=== PATIENT | male | born 1955 | race Caucasian/White ===

== ENCOUNTER 2017-10-31 23:43 | Emergency (ER) | payer OTHER ==
[2017-10-31 23:51] VITALS: RESP 18
--- NOTE | 2017-11-01 00:21 | XR ---
EXAMINATION TYPE: XR chest 2V DATE OF EXAM: 11/01/2017 COMPARISON: 10/26/2008 HISTORY: Irregular heartbeat TECHNIQUE: Frontal and lateral views of the chest are obtained. FINDINGS: There is no heart failure nor confluent pneumonic infiltrate. There are sternal wires. Cos tophrenic angles are clear. Heart size is normal. IMPRESSION: No active cardiopulmonary disease. There is clearing of the subsegmental atelectasis on the left side compared to old exam.
[2017-11-01 00:26] LABS: Basophils % (A) 0 %; Eosinophils # (A) 0.4 k/uL (0-0.7); Eosinophils % (A) 4 %; HCT 48.5 % (39.0-53.0); HGB 16.4 gm/dL (13.0-17.5); Lymphocytes # (A) 2.5 k/uL (1.0-4.8); Lymphocytes % (A) 27 %; MCH 27.3 pg (25.0-35.0); MCHC 33.7 g/dL (31.0-37.0); MCV 80.9 fL (80.0-100.0); Mean Platelet Volume 7.3; Monocytes # (A) 0.6 k/uL (0-1.0); Monocytes % (A) 7 %; Neutrophils # (A) 5.4 k/uL (1.3-7.7); Neutrophils % (A) 59 %; Platelet Count 237 k/uL (150-450); RBC 5.99 m/uL (4.30-5.90); RDW 13.2 % (11.5-15.5); WBC 9.2 k/uL (3.8-10.6)
[2017-11-01 00:36] LABS: INR 1.1 (<1.2); Partial Thromboplastin Time 23.8 sec (22.0-30.0); Prothrombin Time 10.6 sec (9.0-12.0)
[2017-11-01 00:40] LABS: ALT 25 U/L (21-72); AST 23 U/L (17-59); Albumin 4.5 g/dL (3.5-5.0); Alkaline Phosphatase 67 U/L (38-126); Anion Gap 17 mmol/L; Blood Urea Nitrogen 18 mg/dL (9-20); Calcium 9.6 mg/dL (8.4-10.2); Carbon Dioxide 24 mmol/L (22-30); Chloride 102 mmol/L (98-107); Glucose 116 mg/dL (74-99); Potassium 3.9 mmol/L (3.5-5.1); Sodium 143 mmol/L (137-145); Total Bilirubin 1.1 mg/dL (0.2-1.3); Total Protein 6.7 g/dL (6.3-8.2)
[2017-11-01 00:50] LABS: Creatine Kinase 48 U/L (55-170)
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
[2017-11-01 01:03] LABS: Creatine Kinase MB 0.6 ng/mL (0.0-2.4); Troponin I <0.012 ng/mL (0.000-0.034)
[2017-11-01 02:44] VITALS: BP 132/67; PULSE 62; TEMP 98
== END 2017-11-01 02:44 | disposition home or self-care (01) ==
LOC: EC 23:43
DX: R00.2 Palpitations (principal); M25.512 Pain in left shoulder; E78.5 Hyperlipidemia, unspecified; I10 Essential (primary) hypertension; Z79.82 Long term (current) use of aspirin; Z79.899 Other long term (current) drug therapy; Z95.1 Presence of aortocoronary bypass graft; Z95.818 Presence of other cardiac implants and grafts
CPT/HCPCS: 36415; 71046; 80053; 82550; 82553; 83735; 84484; 85025; 85610; 85730; 93005; 99285

== ENCOUNTER → 2020-05-29 | Outpatient (CLI) | payer BC ==
--- NOTE | 2020-05-29 11:30 | US ---
EXAMINATION TYPE: US abdomen complete DATE OF EXAM: 05/29/2020 COMPARISON: NONE CLINICAL HISTORY: K83.9 BILIARY AND GALLBLADER DISORDER. Gallbladder disorder EXAM MEASUREMENTS: Liver Length: 18.7 cm Gallbladder Wall: 0.3 cm CBD: 0.4 cm Spleen: 13.6 cm Right Kidney: 12.5 x 6.4 x 6.7 cm Left Kidney: 12.5 x 7.1 x 5.9 cm Pancreas: wnl, tail obscured by overlying bowel gas Liver: Enlarged, Difficult to penetrate, heterogeneous Gallbladder: Possible small stones near neck, dependent echoes are present Evidence for sonographic Mckeon's sign: No CBD: wnl Spleen: Enlarged Right Kidney: Probable parapelvic cyst= 8.3 x 5.4 x 5.1 cm , no definite hydronephrosis, cortical c yst also suspected upper pole Left Kidney: wnl Upper IVC: wnl Abd Aorta: wnl, distal portion gassed out There is no ascites. Kidneys show normal cortical medullary differentiation. IMPRESSION: Hepatic steatosis, hepatosplenomegaly. Cholelithiasis. Probable parapelvic possible corti dilia cyst left kidney, alternate imaging could be performed for better definition.
== END | disposition home or self-care (01) ==
LOC: RADUSWWP 07:27
PROVIDERS: ATTEND Internal Medicine
DX: K76.0 Fatty (change of) liver, not elsewhere classified (principal); R16.2 Hepatomegaly with splenomegaly, not elsewhere classified; K80.20 Calculus of gallbladder without cholecystitis without obstruction
CPT/HCPCS: 76700

== ENCOUNTER → 2020-06-23 | Outpatient (CLI) | payer BC ==
--- NOTE | 2020-06-23 14:51 | NM ---
Nuclear medicine hepatobiliary scan. HISTORY: Pain. DOSAGE: The patient received 8 ounces of ensure plus and 4.7 mCi of Technetium 99m Choletec. FINDINGS: There is normal hepatic extraction. The gallbladder is seen by 15 minutes. There is bilia ry to bowel clearance by 15 minutes. Ejection fraction is 79%. IMPRESSION: 1. Normal hepatobiliary exam
== END | disposition home or self-care (01) ==
LOC: RADNMMAIN 12:32
PROVIDERS: ATTEND Internal Medicine
DX: K83.9 Disease of biliary tract, unspecified (principal)
CPT/HCPCS: 78226; A9537

== ENCOUNTER → 2021-04-14 | Outpatient (CLI) | payer BC ==
--- NOTE | 2021-04-14 09:31 | XR ---
Right shoulder HISTORY: Pain 3 views the right shoulder Acromioclavicular joint arthropathy is present. Bone mineralization, joint spaces and alignment are m aintained. There is a distal acromial spur. Right lung apex as visualized is normal. No fracture or d islocation. Oblique image does not show the entire scapula. IMPRESSION: Correlate for impingement, there is acromioclavicular joint arthropathy. Shoulder MRI may be of benefit.
== END | disposition home or self-care (01) ==
LOC: RADXRMAIN 09:06
PROVIDERS: ATTEND Internal Medicine
DX: M19.011 Primary osteoarthritis, right shoulder (principal)

== ENCOUNTER → 2022-01-19 | Outpatient (CLI) | payer BC ==
--- NOTE | 2022-01-19 12:46 | XR ---
EXAMINATION TYPE: XR chest 2V DATE OF EXAM: 01/19/2022 COMPARISON: Chest x-ray dated 11/01/2017 HISTORY: Z 18.10 TECHNIQUE: Frontal and lateral views of the chest are obtained. FINDINGS: There is no focal air space opacity, pleural effusion, or pneumothorax seen. The cardiac silhouette size is within normal limits. Patient is post median sternotomy. No evident epicardial pac ing leads. There are coronary artery calcifications. The right hemidiaphragm remains elevated. The o sseous structures are intact. IMPRESSION: No acute cardiopulmonary process. Coronary artery disease.
== END | disposition home or self-care (01) ==
LOC: RADXRMAIN 11:59
PROVIDERS: ATTEND Podiatrist
DX: I25.10 Atherosclerotic heart disease of native coronary artery without angina pectoris (principal)
CPT/HCPCS: 71046

== ENCOUNTER 2022-04-02 10:55 | Day surgery (SDC) | payer BC ==
[2022-03-31 12:56] VITALS: BMI 30.5
[~2022-04-02 10:55] MED LIST: DEXAMETHASONE SOD PHOSPHATE 4 MG/ML 1 ML VIAL IV ONE; HYDROmorphone 0.5 MG/0.5 ML SYRINGE IVP PRN; LACTATED RINGERS 1,000 ML IV SCH; LIDOCAINE 1% (10MG/ML) FOR IV START INTRADERMA PRN; MIDAZOLAM 2 MG/2 ML VIAL IV PRN; ONDANSETRON 4 MG/2 ML VIAL IVP ONE
[2022-04-02 11:42] VITALS: RESP 16
[2022-04-02 12:00] LABS: Glucose,Whole Blood 113 mg/dL (70-110)
[2022-04-02] MEDS ORDERED: MIDAZOLAM 2 MG/2 ML VIAL IVP ONE (12:05)
[2022-04-02] MEDS ORDERED: ROPIVACAINE 5 MG/ML 30 ML VIAL ONE (12:45)
[2022-04-02] MEDS ORDERED: PHENYLEPHRINE-0.9% NACL SYG 1,000 MCG/10 ML SYRINGE ONE (12:45)
[2022-04-02] MEDS ORDERED: fentaNYL (PF) 50 MCG/ML 2 ML AMP ONE (12:45)
[2022-04-02] MEDS ORDERED: DEXAMETHASONE SOD PHOSPHATE 4 MG/ML 1 ML VIAL ONE (12:45)
[2022-04-02] MEDS ORDERED: SUCCINYLCHOLINE CHLORIDE 200 MG/10 ML VIAL IV ONE (12:45)
[2022-04-02] MEDS ORDERED: PROPOFOL 10 MG/ML 20 ML VIAL IV ONE (12:45)
[2022-04-02] MEDS ORDERED: MIDAZOLAM 2 MG/2 ML VIAL ONE (12:45)
[2022-04-02] MEDS ORDERED: LIDOCAINE 2% INJ 20 MG/ML (2 ML VIAL) ONE (12:45)
[2022-04-02] MEDS ORDERED: ceFAZolin 1,000 MG in SODIUM CHLORIDE 0.9% 1,000 ML IRRIGATION ONE (12:55)
[2022-04-02] MEDS ORDERED: LACTATED RINGERS 1,000 ML IV ONE (14:09)
[2022-04-02 14:53] VITALS: TEMP 96.8
[2022-04-02 15:58] VITALS: BP 141/79; PULSE 71
--- NOTE | 2022-04-04 19:35 | P.ANPRN ---
Procedure Note - Anesthesia - Nerve Block Performed Right Popliteal Single Time Out Performed: Yes Date of Procedure: 04/02/22 Procedure Start Time: 12:05 Procedure Stop Time: 12:10 Location of Patient: PreOp Indication: Acute Post-Operative Pain, Requested by Surgeon Sedation Type: Sedate with meaningful contact maintained Preparation: Sterile Prep Position: Left Lateral Needle Types: Pajunk Needle Gauge: 21 Ultrasound used to visualize needle placement: Yes Ultrasound used to observe medication spread: Yes Blood Aspirated: No Pain Paresthesia on Injection Noted: No Resistance on Injection: Normal Image Stored and Saved: Yes Events: Uneventful and Well Tolerated (ropi .5% 20cc plus dexamethasone 4mg)
--- NOTE | 2022-04-04 19:36 | P.ANPRN ---
Procedure Note - Anesthesia - Nerve Block Performed Right Adductor Canal Single Time Out Performed: Yes Date of Procedure: 04/02/22 Procedure Start Time: 12:11 Procedure Stop Time: 12:15 Location of Patient: PreOp Indication: Acute Post-Operative Pain, Requested by Surgeon Sedation Type: Sedate with meaningful contact maintained Preparation: Sterile Prep Position: Supine Needle Types: Pajunk Needle Gauge: 21 Ultrasound used to visualize needle placement: Yes Ultrasound used to observe medication spread: Yes Blood Aspirated: No Pain Paresthesia on Injection Noted: No Resistance on Injection: Normal Image Stored and Saved: Yes Events: Uneventful and Well Tolerated (ropi .5% 20cc plus dexamethasone 4mg)
--- NOTE | 2022-04-05 19:06 | OP ---
OPERATIVE REPORT PREOPERATIVE DIAGNOSES: 1. Achilles tendinitis, right. 2. Gastroc equinus, right. 3. Calcaneal spur, right. POSTOPERATIVE DIAGNOSES: 1. Achilles tendinitis, right. 2. Gastroc equinus, right. 3. Calcaneal spur, right. PROCEDURES PERFORMED: 1. Flexor hallucis longus tendon transfer, right ankle. 2. Secondary repair of right Achilles tendon. 3. Gastroc recession, right. 4. Excision of calcaneal spur, right. ANESTHESIA: General with preoperative nerve block. HEMOSTASIS: Right thigh tourniquet at 250 mmHg. ESTIMATED BLOOD LOSS: 5 mL. MATERIALS: One Arthrex SpeedBridge and one Arthrex 8 x 12 mm anchor. INJECTABLES: None. SPECIMENS: None. COMPLICATIONS: None . DESCRIPTION OF PROCEDURE: Prior to the patient being brought to the operating room, anesthesia administered a nerve block in the right lower extremity. Then, the patient was brought into the operating room. Time-out was taken to confirm correct patient identifiers, correct laterality of surgery, and correct procedure. When all staff in the room were in agreement with the time-out, the patient was induced and placed under general anesthesia. At that point, the patient was rolled onto the operating room table in the prone position with appropriate padding in the thoracic area and under any bony prominences. Once Anesthesia was satisfied with the position of the patient, a well- padded tourniquet was placed on the right thigh, and then the right leg was prepped and draped in usual manner. The right leg was exsanguinated, and then the tourniquet was inflated to 250 mmHg. Attention was directed first to the posterior aspect of the leg, where a 4 cm incision was made at the distal end of the gastroc muscle belly. The incision was deepened down to the subcutaneous tissue careful to identify, avoid, and retract any neurovascular structures and cauterize any bleeding vessels. Blunt dissection was continued through the subcutaneous layer down to the deep fascia. The deep fascia was incised and then reflected from the gastroc aponeurosis. The gastroc aponeurosis was mobilized, and then a transverse incision was made through the aponeurosis from medial to lateral. At that point, the ankle was dorsiflexed. It was noted that there was adequate dorsiflexion of the ankle, but there was no stretching of the gastroc recession. Therefore, attention was directed over the Achilles attachment and then an area proximal, so the incision was made medial to the Achilles tendon until it coursed down to the insertion and then it curved over the insertion and ended laterally. That incision was deepened down to the subcutaneous tissue careful to identify, avoid, and retract any neurovascular structures and cauterize any bleeding vessels. The tissue surrounding the Achilles tendon was freed at the attachment on the calcaneus, and there was a significant thickening of the tendon 3 to 4 times normal. Then, utilizing a combination of osteotomes and rongeur, the calcaneal spur was removed, as was a portion of the calcaneal body to help facilitate reattachment upon repair, and then the tendon was mobilized and retracted, and then the subcutaneous tissue was dissected deep to the Achilles tendon down to the deep fascia overlying the flexor hallucis longus muscle belly. The deep fascia was opened to mobilize the muscle, and then with the ankle plantarflexed, the flexor hallucis longus tendon was followed into the medial compartment of the hind foot, and then it was resected and then brought into the surgical field. A whipstitch was then applied to the end of the flexor hallucis longus tendon. At that point, a guidewire for the reamer was placed on the superior aspect of the calcaneus just anterior to the insertion of the Achilles. It was advanced plantar and distal to avoid the calcaneal tuberosity, and then the 8.5 mm reamer was inserted over the guidewire and then drilled and advanced until the plantar cortex was penetrated. At that point, the reamer was removed, but the wire was left in place. The suture ends on the whipstitch were then placed through the eyelet in the guidewire, and then the guidewire was pulled through the drill hole in the calcaneus and out the plantar aspect of the foot. With the ankle in neutral position, the sutures were grasped, and the tendon was fed into the drill hole in the calcaneus until appropriate tensioning was achieved, and then the 8 mm interference screw was inserted in the drill hole to lock the tendon in place. Once completed, the ankle was taken through range of motion and was noted to have appropriate tensioning of the tendon transfer. Then, sharp debridement was performed on the Achilles tendon to debulk the abnormal tissue, and then instrumentation was used to mobilize the tendon and pull it down to the calcaneus to assess where the proper attachment point would be. It was also noted that the tendon was not mobile and appeared to be adhered more proximally, so finger dissection was used to free all the adhesions in the more proximal aspect of the Achilles tendon, but distal to the gastroc recession point. When the tendon was mobilized, again there was more motion available, so the attachment point was brought back to alignment on the Achilles, and then a bebe was made on the calcaneus to bebe the area of its attachment. Drill holes for the SpeedBridge were made first proximal to the attachment point, then approximately 1 cm from the attachment point medial and lateral. Distal drill holes were also made 1 cm from the attachment point medial and lateral. All holes were then tapped, and then the anchors with suture were inserted into the proximal drill holes and advanced to proper depth. Then, the suture attached to the anchors was fed through the Achilles tendon and pulled tight until the Achilles tendon was against the calcaneus. The needles were then cut, so that there were 4 arms of suture remaining. One arm of suture from each anchor was then placed into another 4.75 mm anchor, which was then aligned with a drill hole distally, and then tension was placed through the suture, and then the anchor was advanced into the drill hole locking the suture in place. This process was repeated on the other side to complete the reattachment process. At that point, the ankle was taken through range of motion. There was firm repair of the Achilles back onto the calcaneus. All the sutures were then cut at that point. Then, utilizing a 3-0 Monocryl, the flexor hallucis longus tendon and muscle belly were sewn to the deep side of the Achilles tendon to further augment the repair and provide a passive blood supply to the tissue. The wound was then thoroughly irrigated with antibiotic saline. A subcutaneous closure was then done with 3-0 Monocryl, and skin closure was done with isabel. An Arthrex JumpStart dressing was placed over both incisions, and a bulky dry dressing was applied to the right leg. The tourniquet was released, and capillary refill returned to all digits on the right foot. The patient was then placed in a well- padded, well-molded plaster posterior mold/sugar-tong splint, and the ankle was held in neutral position until it dried. The patient was then rolled back onto the transfer table, where anesthesia was reversed, and then, he was taken to Recovery with vital signs stable. MMODL / IJN: [id number] /
== END 2022-04-02 16:15 | disposition home or self-care (01) ==
LOC: OR 10:55
PROVIDERS: ATTEND Podiatrist
DX: S86.001A Unspecified injury of right Achilles tendon, initial encounter (principal); M76.61 Achilles tendinitis, right leg; M77.31 Calcaneal spur, right foot; M21.6X1 Other acquired deformities of right foot; M66.371 Spontaneous rupture of flexor tendons, right ankle and foot; M62.461 Contracture of muscle, right lower leg; G89.18 Other acute postprocedural pain; E78.5 Hyperlipidemia, unspecified; E11.9 Type 2 diabetes mellitus without complications; I63.9 Cerebral infarction, unspecified; Z79.82 Long term (current) use of aspirin; Z97.2 Presence of dental prosthetic device (complete) (partial); I11.9 Hypertensive heart disease without heart failure; Z98.890 Other specified postprocedural states; Z82.49 Family history of ischemic heart disease and other diseases of the circulatory system; Z79.899 Other long term (current) drug therapy; Z79.84 Long term (current) use of oral hypoglycemic drugs; X58.XXXA Exposure to other specified factors, initial encounter
CPT/HCPCS: 27691; 27654; 27687; 28119; 64447; 64445; 76942; C1713 ×3; J2250; J0330; J1100; J0690 ×2; J2405; J3010; J2795; J2370; J2704; J2001

== ENCOUNTER 2023-07-29 08:39 | Day surgery (SDC) | payer BC, MEDICARE ==
[~2023-07-29 08:39] MED LIST changes: -DEXAMETHASONE SOD PHOSPHATE 4 MG/ML 1 ML VIAL IV ONE; -HYDROmorphone 0.5 MG/0.5 ML SYRINGE IVP PRN; -MIDAZOLAM 2 MG/2 ML VIAL IV PRN; -ONDANSETRON 4 MG/2 ML VIAL IVP ONE
[2023-07-29 09:11] LABS: Glucose,Whole Blood 113 mg/dL (70-110)
[2023-07-29] MEDS ORDERED: PROPOFOL 10 MG/ML 20 ML VIAL IV ONE (09:13)
[2023-07-29 09:17] VITALS: TEMP 97.4
--- NOTE | 2023-07-29 09:28 | P.PCN ---
Date of Procedure: 07/29/23 Procedure(s) Performed: BRIEF HISTORY: Patient is a 67-year-old pleasant male scheduled for an elective colonoscopy as a part of evaluation of prior history of colon polyps. Last colonoscopy was 7 years ago. PROCEDURE PERFORMED: Colonoscopy with biopsy. PREOPERATIVE DIAGNOSIS: History of colon polyps. IV sedation per Anesthesia. PROCEDURE: After informed consent was obtained, the patient, was brought into the endoscopy unit. IV sedation was administered by Anesthesia under continuous monitoring. Digital rectal examination was normal. Initially the Olympus CF-160 flexible video colonoscope was then inserted in the rectum, gradually advanced into the cecum without any difficulty. Careful examination was performed as the scope was gradually being withdrawn. Ileocecal valve and the appendiceal orifice were visualized and appeared normal. Prep was excellent. Mucosa of the cecum, appeared normal. In the ascending colon there was a 3 mm sessile polyp that was removed by cold biopsy. Rest of the ascending colon, transverse colon, descending colon, sigmoid colon, and rectum appeared normal. Scattered sigmoid diverticulosis. Retroflexion was performed in the rectum and no lesions were seen. The patient tolerated the procedure well. IMPRESSION: 3 mm ascending colon polyp status post cold biopsy Scattered sigmoid diverticulosis Rest of the colon appeared normal RECOMMENDATIONS: Findings of this examination were discussed with the patient as well as his family. He was advised to follow results. If the biopsy is adenoma he can have a repeat colonoscopy in 5 years.
[2023-07-29 10:06] VITALS: BP 133/77; PULSE 64; RESP 16
== END 2023-07-29 10:08 | disposition home or self-care (01) ==
LOC: ORWHC2ENDO 08:39
PROVIDERS: ATTEND Internal Medicine Gastroenterology
DX: Z12.11 Encounter for screening for malignant neoplasm of colon (principal); D12.2 Benign neoplasm of ascending colon; K57.30 Diverticulosis of large intestine without perforation or abscess without bleeding; I25.10 Atherosclerotic heart disease of native coronary artery without angina pectoris; I10 Essential (primary) hypertension; E78.5 Hyperlipidemia, unspecified; E11.9 Type 2 diabetes mellitus without complications; M19.90 Unspecified osteoarthritis, unspecified site; K21.9 Gastro-esophageal reflux disease without esophagitis; Z86.010 Personal history of colon polyps; Z79.84 Long term (current) use of oral hypoglycemic drugs; Z79.82 Long term (current) use of aspirin; Z79.899 Other long term (current) drug therapy; Z95.5 Presence of coronary angioplasty implant and graft
CPT/HCPCS: 88305; 45380; J2704